=== PATIENT | male | born 1940 | race Caucasian/White ===

== ENCOUNTER → 2020-02-18 | Outpatient (CLI) | payer OTHER | END | disposition home or self-care (01) | LOC: NUCLEAR 07:30 | PROVIDERS: ATTEND Orthopaedic Surgery Sports Medicine | DX: T84.84XA Pain due to internal orthopedic prosthetic devices, implants and grafts, initial encounter (principal) | CPT/HCPCS: 78315; 78802; A9503; A9556 ==